=== PATIENT | male | born 1995 | race Caucasian/White ===

== ENCOUNTER 2016-06-15 14:03 | Emergency (ER) | payer BC ==
[2016-06-15 14:09] VITALS: O2SAT 97
[2016-06-15] MEDS ORDERED: OXYCODONE/APAP 5/325 TAB PO ONE (14:20)
--- NOTE | 2016-06-15 14:20 | EDPHY ---
H & P Time Seen by Provider: 06/15/16 14:12 HPI/ROS: CHIEF COMPLAINT: Right clavicle pain HISTORY OF PRESENT ILLNESS: 21-year-old male via private vehicle complaining of acute right clavicle pain after he fell off of his skateboard prior to arrival. No paresthesia. No head injury. No neck pain or injury. No dyspnea. No chest pain. PHYSICAL EXAM (Prior to examination, patient consented to physical exam, hands were washed and my usual and customary physical exam procedures followed) 1) GENERAL: Well-developed, well-nourished, alert and oriented. Appears to be in no acute distress. 2) HEAD: Normocephalic 3) HEENT: Pupils equal, round, reactive to light bilaterally. 4) LUNGS: Breathing comfortably. 5) MUSCULOSKELETAL: Visible deformity to the midshaft clavicle. No tenting of skin. Intact skin with no puncture wound. No bleeding. Soft compartments. Normal coloration. Remainder of right upper extremity nontender 6) SKIN: intact 7) VASCULAR: pulses and cap refill present are brisk 8) NEUROLOGIC: Radial, ulnar, median nerve function intact with no deficits appreciated on exam DIFFERENTIAL DIAGNOSIS: in no particular order including but not limited to fracture, sprain, compartment syndrome Procedure: Splint An upper extremity sling was applied by ER quality assurance qa lab technician. After application of the splint I returned and re-examined the patient. The splint was adequately immobilizing the joint and distal to the splint the patient's circulation and sensation were intact. Patient shows no signs of compartment syndrome. Was given orthopedic precautions. Smoking Status: Current every day smoker Constitutional: Initial Vital Signs Temperature (C) 36.2 C 06/15/16 14:07 Heart Rate 65 06/15/16 14:07 Respiratory Rate 18 06/15/16 14:07 Blood Pressure 169/105 H 06/15/16 14:07 O2 Sat (%) 97 06/15/16 14:07 O2 Delivery Mode Room Air Allergies/Adverse Reactions: No Known Allergies Allergy (Unverified 06/15/16 14:06) Home Medications: Medication Instructions Recorded oxyCODONE/APAP 5/325 [Percocet 1 tab PO Q6 #10 tab 06/15/16 5/325] MDM/Departure - MDM Diagnostics: Right Shoulder - Three Views, 2:09 PM Indication: Shoulder pain. Fell skateboarding. Comparison: None. Findings: An acute midshaft right clavicular fracture is minimally comminuted. Two small vertically oriented segmental fracture fragments overlie the oblique fracture plane. The distal aspect of the proximal fracture fragment is superiorly retracted one full bone width relative to the distal fracture fragment. The acromioclavicular and coracoclavicular intervals are normal. The glenohumeral joint is normal. Right lung apex is clear. No pneumothorax. Impression: Acute, minimally displaced right midshaft clavicular fracture. Dictated By: Jeremi Lewis MD Images reviewed by myself Medications Given: Discontinued Medications Oxycodone/Acetaminophen (Percocet 5/325) 2 tab PO EDNOW ONE Stop: 06/15/16 14:21 Last Admin: 06/15/16 14:23 Dose: 2 tab ED Course/Re-evaluation: Serial evaluations performed on patient. No evidence of open fracture. No tenting of skin. Recommend follow up with Orthopedics as he will more than likely necessitate surgical reduction of this however this is not need to occur on an emergent basis. He feels comfortable being discharged with my usual and customary orthopedic precautions instructions. - Depart Disposition: Home, Routine, Self-Care Clinical Impression: Clavicle fracture, shaft Qualifiers: Encounter type: initial encounter Fracture type: closed Fracture alignment: displaced Laterality: right Qualified Code(s): S42.021A - Displaced fracture of shaft of right clavicle, initial encounter for closed fracture Condition: Good Instructions: Clavicle Fracture (ED) Additional Instructions: Return to the ER immediately if you experience discoloration, have worsening pain, numbness, tingling, or any other symptoms that concern you. If you received x-rays in the emergency department today, be advised, that ligamentous , tendon, muscular, and other non-bony injury cannot be fully ruled out. Try to keep your affected extremity elevated above the level of your chest, and keep cold packs on the affected area, for the next 48 hours. Prescriptions: oxyCODONE/APAP 5/325 [Percocet 5/325] 1 tab PO Q6 #10 tab Referrals: Gen Herrera MD [Medical Doctor] - 2-3 days, call for appt. (Dr. Gen Herrera is an orthopedic surgeon)
[2016-06-15 15:36] VITALS: BP 150/84; PULSE 71; RESP 16; TEMP 98.4
== END 2016-06-15 15:51 | disposition home or self-care (01) ==
DX: S42.021A Displaced fracture of shaft of right clavicle, initial encounter for closed fracture (principal); F17.200 Nicotine dependence, unspecified, uncomplicated; V00.131A Fall from skateboard, initial encounter; Y99.8 Other external cause status; Y93.51 Activity, roller skating (inline) and skateboarding
CPT/HCPCS: A4565